=== PATIENT | male | born 1980 | race Caucasian/White ===

== ENCOUNTER 2016-06-24 19:07 | Emergency (ER) | payer MEDICARE ==
[~2016-06-24 19:07] MED LIST: *UNABLE1; ACT300 PO; COR20 PO; FLEX PO; IRON PO; K500 PO; MAGOX4 PO; NORCO1 TA1 PO; PRILOSEC10 MG PO; PRILOSEC40 MG PO; PROGRAF1 PO; PROGRAF5; PROTONIX PO; RIFADIN 300 MG300 MG PO; RIFADIN150 MG PO; [UNRECOGNIZED DRUG - REMARK]
[2016-12-19] MEDS ORDERED: PROTONIX PO (11:30)
== END 2016-06-24 21:03 | disposition home or self-care (01) ==
LOC: ER 19:07
PROC: 0HQGXZZ Repair Left Hand Skin, External Approach (ICD-10-PCS; principal; 2016-06-24)
DX: S61.213A Laceration without foreign body of left middle finger without damage to nail, initial encounter (principal); S61.215A Laceration without foreign body of left ring finger without damage to nail, initial encounter; Z79.899 Other long term (current) drug therapy; Y28.8XXA Contact with other sharp object, undetermined intent, initial encounter
CPT/HCPCS: 90714; 99283

== ENCOUNTER 2016-06-25 02:43 | Emergency (ER) | payer MEDICARE ==
[2016-12-19] MEDS ORDERED: PROTONIX PO (11:30)
== END 2016-06-25 03:07 | disposition home or self-care (01) ==
LOC: ER 02:43
PROC: 2W3KX1Z Immobilization of Left Finger using Splint (ICD-10-PCS; principal; 2016-06-25)
DX: S62.633A Displaced fracture of distal phalanx of left middle finger, initial encounter for closed fracture (principal); S61.215A Laceration without foreign body of left ring finger without damage to nail, initial encounter; Z79.899 Other long term (current) drug therapy; W45.8XXA Other foreign body or object entering through skin, initial encounter
CPT/HCPCS: 73130-LT; 90471; 90714; 99283